=== PATIENT | female | born 1995 | race Two or more races ===

== ENCOUNTER 2019-10-19 12:18 | Emergency (ER) | payer OTHER ==
[2019-10-19 12:24] VITALS: BP 130/85; PULSE 80; TEMP 98.6; BMI 24.5
[2019-10-19] MEDS ORDERED: AZITHROMYCIN 500 MG TABLET PO ONE (13:04)
[2019-10-19] MEDS ORDERED: AZITHROMYCIN 250 MG TABLET ONE (13:09)
--- NOTE | 2019-10-19 13:15 | PDOC ---
History of Present Illness - General Chief Complaint: Vaginal Sxs Stated Complaint: PAIN Time Seen by Provider: 10/19/19 12:39 History Source: Patient Exam Limitations: Clinical Condition - History of Present Illness Initial Comments: 10/19/19 13:10 Patient with no significant past medical history present with complaint of 2 months history of vaginal discharge with vaginal irritation which has not been improving with Monistat. Patient sexually active with one partner. Reported last menstrual period 2 weeks ago. Denies vaginal bleeding. Patient does not use any control. Denies nausea, vomiting, urinary frequency, dysuria, burning with urination or any urinary symptoms. Denies fever, chills, abdominal pains. Denies any other symptoms. Patient has not followed up with [facility] for symptoms Is this a multiple visit Asthma Patient?: No Timing/Duration: other (2 months) Past History - Medical History Allergies/Adverse Reactions: Allergies Allergy/AdvReac Type Severity Reaction Status Date / Time No Known Allergies Allergy Verified 10/19/19 12:24 Home Medications: Ambulatory Orders Fluconazole [Diflucan] 150 mg PO ONCE 1 Days #2 tablet 10/19/19 metroNIDAZOLE [Flagyl -] 500 mg PO DAILY #14 tablet 10/19/19 COPD: No - Psycho-Social/Smoking History Smoking History: Never smoked - Substance Abuse Hx (Audit-C & DAST Scrn) How often the patient has a drink containing alcohol: Never Score: In Men: 4 or > Positive; In Women: 3 or > Positive: 0 Screen Result (Pos requires Nsg. Audit-10AR): Negative Review of Systems - Review of Systems Able to Perform ROS?: Yes Is the patient limited Barbadian proficient: No Constitutional: No: Chills, Fever, Malaise HEENTM: No: Symptoms Reported, See HPI, Eye Pain, Blurred Vision, Tearing, Recent change in vision, Double Vision, Cataracts, Ear Pain, Ocular Prothesis, Ear Discharge, Nose Pain, Nose Congestion, Tinnitus, Nose Bleeding, Hearing Loss, Throat Pain, Throat Swelling, Mouth Pain, Dental Problems, Difficulty Swallowing, Mouth Swelling, Other Respiratory: No: Symptoms reported, See HPI, Cough, Orthopnea, Shortness of Breath, SOB with Exertion, SOB at Rest, Stridor, Wheezing, Productive cough, Hemoptysis, Other ABD/GI: No: Symptoms Reported, See HPI, Nausea, Vomiting, Abdominal cramping : Yes: Symptoms Reported, See HPI, Discharge, Pain (Vaginal pain). No: Burning, Dysuria, Frequency, Hematuria, Incontinence, Urgency Musculoskeletal: No: Symptoms Reported, Back Pain Integumentary: No: Symptoms Reported All Other Systems: Reviewed and Negative *Physical Exam - Vital Signs Last Vital Signs Temp Pulse Resp BP Pulse Ox 98.6 F 80 18 130/85 98 10/19/19 12:22 10/19/19 12:22 10/19/19 12:10/19/19 12:10/19/19 12:22 - Physical Exam General Appearance: Yes: Nourished, Appropriately Dressed. No: Apparent Distress HEENT: positive: Normal ENT Inspection Neck: positive: Supple Respiratory/Chest: negative: Respiratory Distress, Accessory Muscle Use Female Pelvic Exam: positive: normal external exam, cervical os closed, discharge (Moderate amount of thick yellow-green discharge in vaginal vault covering whole cervix with small amount of curdy cheesy discharge in vaginal vault). negative: CMT, lesions, adnexal tenderness, vaginal bleeding Gastrointestinal/Abdominal: positive: Normal Bowel Sounds. negative: Tender, Flat Musculoskeletal: positive: Normal Inspection. negative: CVA Tenderness Extremity: positive: Normal Inspection, Normal Range of Motion Integumentary: positive: Normal Color Neurologic: positive: Fully Oriented, Alert, Normal Response Medical Decision Making - Medical Decision Making 10/19/19 13:11 Patient with no significant past medical history present with complaint of 2 months history of vaginal discharge with vaginal irritation which has not been improving with Monistat. Patient sexually active with one partner. Reported last menstrual period 2 weeks ago. Denies vaginal bleeding. Patient does not use any control. Denies nausea, vomiting, urinary frequency, dysuria, burning with urination or any urinary symptoms. Denies fever, chills, abdominal pains. Denies any other symptoms. Patient has not followed up with [facility] for symptoms Exam significant for moderate amount of thick green-yellow discharge with some cottage cheese in the vaginal vault covering the whole cervix. No cervical motion tenderness. No blood in the vault. No abdominal tenderness. Given moderate amount of discharge which has been going over 2 months we will treat empirically for gonorrhea and chlamydia pending testing results. Genital culture and GC and chlamydia tests ordered. UA, urine hCG and urine culture ordered. Will treat with ceftriaxone 250 mg IM and azithromycin 1 g p.o. Will disposal based on UA results 10/19/19 13:59 Urine test negative. Patient stable for discharge on Flagyl 500 mg twice daily for a week for possible trichomoniasis or BV and Diflucan 150 mg p.o. with [facility] follow-up pending genital and urine culture results Discharge - Discharge Information Problems reviewed: Yes Clinical Impression/Diagnosis: Vaginitis and vulvovaginitis Condition: Stable Disposition: HOME - Admission No - Additional Discharge Information Prescriptions: Fluconazole [Diflucan] 150 mg PO ONCE 1 Days #2 tablet metroNIDAZOLE [Flagyl -] 500 mg PO DAILY #14 tablet - Follow up/Referral Referrals: Henry Lloyd MD [Staff Physician] - - Patient Discharge Instructions Patient Printed Discharge Instructions: DI for Vaginal Yeast Infection, DI for Vaginal Discharge Additional Instructions: Take prescribed medication as prescribed for vaginal discharge. Refrain from unprotected sex for at least 2 weeks. You will be contacted with lab test results in 2 to 5 days - Post Discharge Activity
[2019-10-19 13:42] LABS: HCG,QUALITATIVE URINE Negative
[2019-10-19 13:52] LABS: URINE APPEARANCE CLEAR; URINE BILIRUBIN NEGATIVE (NEGATIVE); URINE COLOR YELLOW; URINE GLUCOSE (UA) NEGATIVE (NEGATIVE); URINE KETONE NEGATIVE (NEGATIVE)
[2019-10-19 13:53] LABS: URINE LEUK ESTERASE 2+ (NEGATIVE); URINE NITRITE NEGATIVE (NEGATIVE); URINE PROTEIN NEGATIVE (NEGATIVE); URINE UROBILINOGEN 0.2 mg/dL (0.2-1.0)
[2019-10-19 13:55] LABS: EPI CELLS 11 /uL (0-25.1); HYALINE CASTS 0 /uL (0-3.1); URINE BACTERIA 35 /uL (0-1359); URINE RBC 8 /uL (0-23.9); URINE WBC 18 /uL (0-25.8)
== END 2019-10-19 13:48 | disposition home or self-care (01) ==
LOC: JERFT 12:18
PROC: 3E023GC Introduction of Other Therapeutic Substance into Muscle, Percutaneous Approach (ICD-10-PCS; principal; 2019-10-19)
DX: N76.0 Acute vaginitis (principal)
CPT/HCPCS: 36415; 81003; 84703; 87070; 87077; 87086; 87205; 87491; 87591; 87661; 99284-25

== ENCOUNTER 2021-04-30 21:03 | Emergency (ER) | payer OTHER ==
[2021-04-30 21:22] VITALS: BMI 26.5
[2021-04-30 22:18] LABS: BASO % 0.6 % (0-2.0); EOS % 2.6 % (0-4.5); HEMATOCRIT 40.6 % (32.4-45.2); HEMOGLOBIN 13.6 GM/dL (10.7-15.3); LYMPH % 34.2 % (8-40); MCH 27.1 pg (25.7-33.7); MCHC 33.6 g/dl (32.0-36.0); MEAN CELL VOLUME 80.7 fl (80-96); MEAN PLT VOLUME 7.5 fl (7.5-11.1); NEUT % 52.6 % (42.8-82.8); RBC 5.02 M/mm3 (3.60-5.2); WHITE BLOOD COUNT 9.6 K/mm3 (4.0-10.0)
[2021-04-30 22:50] LABS: CALCIUM 9.6 mg/dL (8.5-10.1)
[2021-04-30 22:51] LABS: BLOOD UREA NITROGEN 8.8 mg/dL (7-18)
[2021-04-30 22:54] LABS: CREATININE 0.6 mg/dL (0.55-1.3)
[2021-04-30 22:55] LABS: BILIRUBIN,TOTAL 0.3 mg/dL (0.2-1); TOT PROT 7.5 g/dl (6.4-8.2)
[2021-04-30 23:19] LABS: PLATELET COUNT 349 10^3/uL (134-434); PLATELET ESTIMATE ADEQUATE
[2021-04-30 23:32] LABS: URINE APPEARANCE Clear; URINE BILIRUBIN Negative (NEGATIVE); URINE COLOR Yellow; URINE GLUCOSE (UA) Negative (NEGATIVE); URINE KETONE Negative (NEGATIVE); URINE LEUK ESTERASE 3+ (NEGATIVE); URINE NITRITE Negative (NEGATIVE); URINE PROTEIN Negative (NEGATIVE); URINE UROBILINOGEN 0.2 mg/dL (0.2-1.0)
[2021-05-01 01:56] VITALS: BP 130/77; PULSE 82; TEMP 98.5
== END 2021-05-01 01:55 | disposition home or self-care (01) ==
LOC: JER 21:03
DX: O26.851 Spotting complicating pregnancy, first trimester (principal); Z3A.01 Less than 8 weeks gestation of pregnancy
CPT/HCPCS: 36415; 76817-TC; 80053; 81003; 84702; 85025; 86850; 86900; 86901; 87086; 87491; 87591; 99284-25

== ENCOUNTER 2021-05-06 14:05 | Emergency (ER) | payer OTHER ==
[2021-05-06 14:11] VITALS: BP 117/78; PULSE 80; TEMP 98.4; BMI 27.1
[2021-05-06 16:16] LABS: BASO % 1.1 % (0-2.0); EOS % 3.4 % (0-4.5); HEMOGLOBIN 14.1 GM/dL (10.7-15.3); LYMPH % 31.3 % (8-40); MCH 26.9 pg (25.7-33.7); MCHC 32.8 g/dl (32.0-36.0); MEAN CELL VOLUME 81.9 fl (80-96); MEAN PLT VOLUME 7.7 fl (7.5-11.1); MONO % 6.6 % (3.8-10.2); NEUT % 57.6 % (42.8-82.8); PLATELET COUNT 370 10^3/uL (134-434); RBC 5.25 M/mm3 (3.60-5.2); RDW 14.8 % (11.6-15.6); WHITE BLOOD COUNT 6.5 K/mm3 (4.0-10.0)
[2021-05-06 16:28] LABS: CALCIUM 9.8 mg/dL (8.5-10.1)
[2021-05-06 16:29] LABS: ALBUMIN 4.2 g/dl (3.4-5.0)
[2021-05-06 16:30] LABS: CREATININE 0.6 mg/dL (0.55-1.3)
[2021-05-06 16:33] LABS: BILIRUBIN,TOTAL 0.2 mg/dL (0.2-1); TOT PROT 8.1 g/dl (6.4-8.2)
[2021-05-06 16:40] LABS: EPI CELLS 6 /uL (0-25.1); HYALINE CASTS 0 /uL (0-3.1); URINE APPEARANCE CLEAR; URINE BACTERIA 22 /uL (0-1359); URINE BILIRUBIN NEGATIVE (NEGATIVE); URINE COLOR YELLOW; URINE GLUCOSE (UA) NEGATIVE (NEGATIVE); URINE KETONE NEGATIVE (NEGATIVE); URINE LEUK ESTERASE NEGATIVE (NEGATIVE); URINE NITRITE NEGATIVE (NEGATIVE); URINE PROTEIN NEGATIVE (NEGATIVE); URINE RBC 11 /uL (0-23.9); URINE UROBILINOGEN 0.2 mg/dL (0.2-1.0); URINE WBC 6 /uL (0-25.8)
== END 2021-05-06 17:22 | disposition home or self-care (01) ==
LOC: JER 14:05
DX: O26.851 Spotting complicating pregnancy, first trimester (principal); Z3A.08 8 weeks gestation of pregnancy
CPT/HCPCS: 36415; 76817-TC; 80053; 81003; 84702; 85025; 87086; 99284-25

== ENCOUNTER 2021-11-27 13:55 | Inpatient (IN) | payer OTHER ==
[2021-11-27] MEDS ORDERED: AMPICILLIN - 2 GM in SODIUM CHLORIDE 100 ML IVPB ONE (14:00)
[2021-11-27] MEDS: DEXTROSE 5%-LACTATED RINGERS 1,000 ML IV SCH (14:30)
[2021-11-27] MEDS ORDERED: AMPICILLIN SODIUM 2 GM VIAL ONE (14:59)
[2021-11-27] MEDS ORDERED: BETAMET ACET/BETAMET NA PH 30 MG/5 ML VIAL ONE (14:59)
[2021-11-27] MEDS: BETAMET ACET/BETAMET NA PH 30 MG/5 ML VIAL IM SCH (15:15)
[2021-11-27 15:51] LABS: INR 0.96 (0.83-1.09)
[2021-11-27 15:53] LABS: ACTIVATED PTT 32.1 SECONDS (25.2-36.5)
[2021-11-27 16:07] LABS: CALCIUM 9.6 mg/dL (8.5-10.1)
[2021-11-27 16:08] LABS: BLOOD UREA NITROGEN 6.2 mg/dL (7-18)
[2021-11-27 16:11] LABS: CREATININE 0.4 mg/dL (0.55-1.3)
[2021-11-27 16:39] VITALS: BMI 32.0
[2021-11-27 16:51] LABS: BASO % 0.6 % (0-2.0); EOS % 1.8 % (0-4.5); HEMATOCRIT 45.1 % (32.4-45.2); HEMOGLOBIN 14.9 GM/dL (10.7-15.3); LYMPH % 24.5 % (8-40); MCH 27.8 pg (25.7-33.7); MCHC 32.9 g/dl (32.0-36.0); MEAN CELL VOLUME 84.3 fl (80-96); MEAN PLT VOLUME 8.5 fl (7.5-11.1); MONO % 8.8 % (3.8-10.2); NEUT % 64.3 % (42.8-82.8); PLATELET COUNT 245 10^3/uL (134-434); RBC 5.35 M/mm3 (3.60-5.2); RDW 14.9 % (11.6-15.6); WHITE BLOOD COUNT 10.5 K/mm3 (4.0-10.0)
[2021-11-27] MEDS ORDERED: DINOPROSTONE 10 MG VAGINAL SUPPOSITORY VG ONE (17:00)
[2021-11-27 17:16] LABS: HIV INTERPRETATION NEGATIVE (NEGATIVE)
[2021-11-27] MEDS ORDERED: AMPICILLIN SODIUM 1 GM VIAL ONE ×2 (19:11→23:00)
[2021-11-27] MEDS: AMPICILLIN - 1 GM in SODIUM CHLORIDE 100 ML IVPB SCH ×2 (19:15→23:00)
[2021-11-27] MEDS ORDERED: BUTORPHANOL TARTRATE 1 MG/ML VIAL IVPB ONE (22:10)
[2021-11-27] MEDS ORDERED: PROMETHAZINE HCL 25 MG/1 ML VIAL IVPB ONE (22:11)
[2021-11-27] MEDS ORDERED: BUTORPHANOL TARTRATE 2 MG/ML VIAL ONE (23:49)
[2021-11-27] MEDS ORDERED: PROMETHAZINE HCL 25 MG/1 ML VIAL ONE (23:49)
[2021-11-28] MEDS ORDERED: FENTANYL/BUPIVACAINE/NS/PF - PCEA - 50 ML DISP.SYRIN EP ONE (01:16)
[2021-11-28] MEDS ORDERED: NALOXONE HCL 0.4 MG/ML VIAL IVPUSH PRN (01:19)
[2021-11-28] MEDS ORDERED: LIDOCAINE 1%/EPI 1:100000 (20 ML MULTI DOSE VIAL) ONE (01:25)
[2021-11-28] MEDS ORDERED: FENTANYL/BUPIVACAINE/NS/PF - PCEA - 50 ML DISP.SYRIN EP SCH (01:30)
[2021-11-28] MEDS: AMPICILLIN - 1 GM in SODIUM CHLORIDE 100 ML IVPB SCH ×2 (03:00→07:00)
[2021-11-28] MEDS ORDERED: AMPICILLIN SODIUM 1 GM VIAL ONE (03:02)
[2021-11-28] MEDS ORDERED: OXYTOCIN 20 UNITS in 0.9% NS 20 UNIT/1,000 ML INFUS.BAG IV ONE ×2 (04:16→07:48)
[2021-11-28] MEDS ORDERED: BENZOCAINE 20% 57 GM BOTTLE TP PRN (05:49)
[2021-11-28] MEDS ORDERED: BENZOCAINE 28 GM HEMORRHOIDAL OINTMENT TP PRN (05:49)
[2021-11-28] MEDS ORDERED: ACETAMINOPHEN 325 MG TABLET (FP) PO PRN (05:49)
[2021-11-28] MEDS ORDERED: IBUPROFEN 600 MG TABLET (FP) PO PRN (05:49)
[2021-11-28] MEDS ORDERED: WITCH HAZEL 50% (TUCKS) 40 PAD/JAR PAD TP PRN (05:49)
[2021-11-28] MEDS ORDERED: OXYTOCIN 20 UNITS in 0.9% NS 20 UNIT/1,000 ML INFUS.BAG IV SCH (06:00)
[2021-11-28 07:38] LABS: CORD BASE EXCESS -2.2 mmol/L (0-2); CORD PCO2 57.8 mmHg (30-78); CORD pH 7.271 (7.14-7.44)
[2021-11-28 13:13] LABS: POC NITRAZINE POS
[2021-11-28 14:26] LABS: BASO % 0.3 % (0-2.0); HEMATOCRIT 39.4 % (32.4-45.2); HEMOGLOBIN 13.5 GM/dL (10.7-15.3); LYMPH % 10.4 % (8-40); MCH 28.4 pg (25.7-33.7); MCHC 34.1 g/dl (32.0-36.0); MEAN CELL VOLUME 83.1 fl (80-96); MEAN PLT VOLUME 8.4 fl (7.5-11.1); MONO % 4.2 % (3.8-10.2); NEUT % 85.1 % (42.8-82.8); PLATELET COUNT 254 10^3/uL (134-434); RBC 4.74 M/mm3 (3.60-5.2); RDW 14.9 % (11.6-15.6); WHITE BLOOD COUNT 15.5 K/mm3 (4.0-10.0)
[2021-11-28] MEDS: BETAMET ACET/BETAMET NA PH 30 MG/5 ML VIAL IM SCH (19:22)
[2021-11-28] MEDS: DEXTROSE 5%-LACTATED RINGERS 1,000 ML IV SCH (19:22)
[2021-11-29 06:53] LABS: BASO % 0.4 % (0-2.0); EOS % 0.6 % (0-4.5); HEMOGLOBIN 13.1 GM/dL (10.7-15.3); LYMPH % 22.9 % (8-40); MCH 27.9 pg (25.7-33.7); MCHC 33.4 g/dl (32.0-36.0); MEAN CELL VOLUME 83.3 fl (80-96); MEAN PLT VOLUME 8.6 fl (7.5-11.1); MONO % 7.1 % (3.8-10.2); PLATELET COUNT 258 10^3/uL (134-434); RBC 4.69 M/mm3 (3.60-5.2); RDW 15.3 % (11.6-15.6); WHITE BLOOD COUNT 12.8 K/mm3 (4.0-10.0)
[2021-11-29 21:20] VITALS: RESP 16
[2021-11-29] MEDS ORDERED: SENNOSIDES/DOCUSATE COMBO (SENNA PLUS) TABLET (UD) PO PRN (22:00)
[2021-11-30 11:04] VITALS: BP 150/68; PULSE 92; TEMP 97.7
== END 2021-11-30 11:20 | disposition home or self-care (01) | DRG 560 ==
LOC: JLDR 13:55 → J3W 11-28 08:17
PROVIDERS: ADMIT Obstetrics & Gynecology; ATTEND Obstetrics & Gynecology
PROC: 10E0XZZ Delivery of Products of Conception, External Approach (ICD-10-PCS; principal; 2021-11-27)
DX: O42.013 Preterm premature rupture of membranes, onset of labor within 24 hours of rupture, third trimester (principal); Z3A.35 35 weeks gestation of pregnancy; Z37.0 Single live birth
CPT/HCPCS: 36415; 36600; 59409; 80048; 82803; 83986-QW; 85025; 85610; 85730; 86780; 86850; 86900; 86901; 87389; 88307-TC; 96372; C9803-CS; U0003; U0005

== ENCOUNTER 2022-09-21 20:55 | Emergency (ER) | payer OTHER ==
[2022-09-21 21:02] VITALS: BP 133/86; PULSE 79; RESP 18; TEMP 98; BMI 30.7
== END 2022-09-21 22:08 | disposition home or self-care (01) ==
LOC: JERFT 20:55
DX: K08.89 Other specified disorders of teeth and supporting structures (principal)
CPT/HCPCS: 99283-25

== ENCOUNTER 2023-11-22 23:50 | Inpatient (IN) | payer OTHER ==
[2023-11-23 02:16] VITALS: BMI 36.3
[2023-11-23] MEDS: LACTATED RINGERS SOLUTION 1,000 ML/1,000 ML INFUS.BAG IV SCH (02:20)
[2023-11-23 02:39] LABS: BASO % 0.4 % (0-2.0); EOS % 2.5 % (0-4.5); HEMATOCRIT 39.4 % (32.4-45.2); HEMOGLOBIN 13.2 GM/dL (10.7-15.3); LYMPH % 22.1 % (8-40); MCH 25.9 pg (25.7-33.7); MCHC 33.6 g/dl (32.0-36.0); MEAN CELL VOLUME 77.1 fl (80-96); MEAN PLT VOLUME 7.5 fl (7.5-11.1); PLATELET COUNT 320 10^3/uL (134-434); RBC 5.11 M/mm3 (3.60-5.2); RDW 17.1 % (11.6-15.6); WHITE BLOOD COUNT 9.2 K/mm3 (4.0-10.0)
[2023-11-23 02:56] LABS: POTASSIUM 3.9 mmol/L (3.5-5.1)
[2023-11-23 02:57] LABS: INR 1.03 (0.83-1.09); PROTHROMBIN TIME (PATIENT) 11.8 SEC (9.7-13.0)
[2023-11-23 02:58] LABS: BLOOD UREA NITROGEN 6.8 mg/dL (7-18); CALCIUM 9.5 mg/dL (8.5-10.1)
[2023-11-23 02:59] LABS: ACTIVATED PTT 33.4 SECONDS (25.2-36.5)
[2023-11-23 03:02] LABS: CREATININE 0.4 mg/dL (0.55-1.3)
[2023-11-23] MEDS: MISOPROSTOL 25 MCG TABLET (COMPOUNDED BY PHARMACY) BUC SCH (03:33)
[2023-11-23] MEDS ORDERED: PROMETHAZINE HCL 25 MG/1 ML VIAL ONE (05:43)
[2023-11-23] MEDS ORDERED: BUTORPHANOL TARTRATE 2 MG/ML VIAL ONE (05:43)
[2023-11-23] MEDS: BUTORPHANOL TARTRATE 1 MG/ML VIAL IVPB ONE (05:55)
[2023-11-23] MEDS: PROMETHAZINE HCL 25 MG/1 ML VIAL IVPB ONE (05:55)
[2023-11-23 07:57] LABS: HIV INTERPRETATION NEGATIVE (NEGATIVE)
[2023-11-23] MEDS ORDERED: FENTANYL/BUPIVACAINE/NS/PF - PCEA - 50 ML DISP.SYRIN EP ONE ×2 (08:58→14:06)
[2023-11-23] MEDS: valACYclovir HCL 500 MG TABLET (FP) PO SCH (09:20)
[2023-11-23] MEDS: FENTANYL/BUPIVACAINE/NS/PF - PCEA - 50 ML DISP.SYRIN EP SCH (09:40)
[2023-11-23] MEDS ORDERED: NALOXONE HCL 0.4 MG/ML VIAL IVPUSH PRN (09:49)
[2023-11-23] MEDS ORDERED: OXYTOCIN 30 UNITS in 0.9% NS 30 UNIT/500 ML INFUS.BAG IVPB SCH (12:30)
[2023-11-23] MEDS ORDERED: OXYTOCIN 20 UNITS in 0.9% NS 20 UNIT/1,000 ML INFUS.BAG IV ONE (13:55)
[2023-11-23] MEDS ORDERED: LIDO 2%/EPI 1:200000 PRESRVFRE (20 ML SDVIAL) ONE (15:18)
[2023-11-23] MEDS: OXYTOCIN 20 UNITS in 0.9% NS 20 UNIT/1,000 ML INFUS.BAG IV SCH (17:20)
[2023-11-23] MEDS ORDERED: BENZOCAINE 20% 57 GM BOTTLE TP PRN (17:34)
[2023-11-23] MEDS ORDERED: oxyCODONE HCL 5 MG TABLET PO PRN (17:34)
[2023-11-23] MEDS ORDERED: BENZOCAINE 28 GM HEMORRHOIDAL OINTMENT TP PRN (17:34)
[2023-11-23] MEDS ORDERED: METHYLERGONOVINE MALEATE 0.2 MG/1 ML AMP IM PRN (17:34)
[2023-11-23] MEDS ORDERED: BISACODYL 10 MG SUPP.RECT RC PRN (17:34)
[2023-11-23] MEDS ORDERED: WITCH HAZEL 50% (TUCKS) 40 PAD/JAR PAD TP PRN (17:34)
[2023-11-23 17:40] LABS: CORD HCO3 22.3 mmHg (20-29); CORD PCO2 49.7 mmHg (30-78); CORD pH 7.269 (7.14-7.44)
[2023-11-23] MEDS ORDERED: IBUPROFEN 600 MG TABLET (FP) PO ONE (18:48)
[2023-11-23] MEDS: IBUPROFEN 600 MG TABLET (FP) PO PRN (18:50)
[2023-11-23 19:35] VITALS: RESP 18
[2023-11-23] MEDS: ACETAMINOPHEN 325 MG TABLET (FP) PO PRN (20:59)
[2023-11-24 06:16] LABS: BASO % 0.9 % (0-2.0); EOS % 1.9 % (0-4.5); HEMATOCRIT 36.6 % (32.4-45.2); HEMOGLOBIN 11.9 GM/dL (10.7-15.3); LYMPH % 18.2 % (8-40); MCH 25.4 pg (25.7-33.7); MCHC 32.4 g/dl (32.0-36.0); MEAN CELL VOLUME 78.5 fl (80-96); MEAN PLT VOLUME 7.9 fl (7.5-11.1); MONO % 8.1 % (3.8-10.2); NEUT % 70.9 % (42.8-82.8); PLATELET COUNT 276 10^3/uL (134-434); RBC 4.66 M/mm3 (3.60-5.2); RDW 17.1 % (11.6-15.6); WHITE BLOOD COUNT 12.2 K/mm3 (4.0-10.0)
[2023-11-24] MEDS: DIPHTH,PERTUSS(ACELL),TET 0.5 ML DISP.SYRIN IM ONE (09:40)
[2023-11-24] MEDS ORDERED: VALACYCLOVIR HCL 500 MG PO SCH (10:00)
[2023-11-24] MEDS ORDERED: SENNOSIDES/DOCUSATE COMBO (SENNA PLUS) TABLET (UD) PO PRN (22:00)
[2023-11-25 10:37] VITALS: BP 107/65; PULSE 90; TEMP 98
== END 2023-11-25 13:10 | disposition home or self-care (01) | DRG 560 ==
LOC: JLDR 23:50 → J3W 11-23 19:50
PROVIDERS: ADMIT Obstetrics & Gynecology Obstetrics; ATTEND Obstetrics & Gynecology Obstetrics
PROC: 10E0XZZ Delivery of Products of Conception, External Approach (ICD-10-PCS; principal; 2023-11-23)
DX: O80 Encounter for full-term uncomplicated delivery (principal); Z3A.39 39 weeks gestation of pregnancy; Z37.0 Single live birth
CPT/HCPCS: 36415; 36600; 59409; 80048; 82803; 85025; 85610; 85730; 86780; 86850; 86900; 86901; 87389; 90715